=== PATIENT | female | born 1945 | race Two or more races ===

== ENCOUNTER → 2023-06-05 | Emergency (ER) | payer OTHER ==
[~2023-06-05] VITALS: Ht 162.6 cm; Wt 68.0 kg
[~2023-06-05] MED LIST: COZAAR25 MG; GLUMETZA500 MG PO; LYRICA20 MG/1 ML PO; NEURONTIN300 MG
== END | disposition home or self-care (01) ==
LOC: ER 15:46
DX: M25.59 Pain in other specified joint (principal)
CPT/HCPCS: 93005; 96372; 99284; J1885

== ENCOUNTER 2023-06-22 18:49 | Emergency (ER) | payer OTHER ==
[~2023-06-22] VITALS: Ht 162.6 cm; Wt 68.0 kg
[2023-06-22] MEDS ORDERED: ZETIA10 MG (19:13)
[2023-06-22] MEDS ORDERED: ACETAMINOPHEN 500 MG GEL..CAP PO ONE (20:45)
[2023-06-22] MEDS ORDERED: KETOROLAC TROMETHAMINE 30 MG VIAL IM ONE (20:45)
== END 2023-06-22 23:00 | disposition home or self-care (01) ==
LOC: ER 18:49
DX: M54.50 Low back pain, unspecified (principal); Z86.73 Personal history of transient ischemic attack (TIA), and cerebral infarction without residual deficits; E05.80 Other thyrotoxicosis without thyrotoxic crisis or storm; E78.00 Pure hypercholesterolemia, unspecified; E11.9 Type 2 diabetes mellitus without complications; Z79.84 Long term (current) use of oral hypoglycemic drugs
CPT/HCPCS: 72100; 96372; 99283; J1885

== ENCOUNTER 2024-02-16 12:44 | Emergency (ER) | payer OTHER ==
[~2024-02-16] VITALS: Ht 162.6 cm; Wt 71.7 kg
[~2024-02-16 12:44] MED LIST changes: +ZETIA10 MG
[2024-02-16] MEDS ORDERED: SERTRALINE20 MG/1 ML (13:20)
[2024-02-16] MEDS ORDERED: MELOXICAM7.5 MG (13:20)
[2024-02-16] MEDS ORDERED: HYDRALAZINE HCL25 MG PO (13:20)
[2024-02-16] MEDS ORDERED: ATORVASTATIN CA10 MG PO (13:21)
[2024-02-16] MEDS ORDERED: PRAMIPEXOLE E2.25 MG (13:21)
[2024-02-16] MEDS ORDERED: TRADJENTA5 MG PO (13:21)
[2024-02-16] MEDS ORDERED: ACETAMINOPHEN 500 MG GEL..CAP PO ONE (16:30)
[2024-02-16 17:42] LABS: URINE APPEARANCE Cloudy; URINE BILIRRUBIN Negative (NEGATIVE); URINE BLOOD Negative; URINE COLOR Dark Yellow; URINE GLUCOSE Negative (NEGATIVE); URINE KETONE Trace (NEGATIVE); URINE LEUKOCYTE Small; URINE NITRATE Negative; URINE PROTEIN 30 (NEGATIVE)
[2024-02-16 17:42] LABS: HEMATOCRIT 42.3 % (36.0-45.00); HEMOGLOBIN 14.7 g/dL (12.0-15.00); MEAN CELL VOLUME 87.8 fL (80.00-100.00); MEAN CORPUSCULAR HEMOGLOBIN 30.5 pg (27.00-32.0); MEAN CORPUSCULAR HGB CONC 34.7 g/dl (32.0-36.0); PLATELET COUNT 183 K/uL (150-450); RED BLOOD COUNT 4.82 M/uL (4.00-6.00); RED CELL DISTRIBUTION WIDTH 13.9 % (11.5-14.5)
[2024-02-16 17:45] LABS: URINE BACTERIA 7611.5 uL (0.0-1933); URINE CAST 1.52 uL (0.0-1.40); URINE EPITHELIAL CELLS 169.1 uL (0.0-38.8); URINE WBC 329.9 uL (0.0-23.2)
[2024-02-16 18:04] LABS: BILIRUBIN TOTAL 0.99 mg/dL (0.3-1.2); CALCIUM 9.6 mg/dL (8.5-10.1); CREATININE SERUM 0.97 mg/dL (0.55-1.02); GFR 55.68; GLOBULINA 3.4 G/DL (2.4-3.5); POTASSIUM 4.57 mEq/L (3.5-5.1); TOTAL PROTEIN 7.4 gm/dL (6.4-8.2)
[2024-02-16] MEDS ORDERED: MACRODANTIN100 M1 PO (18:54)
[2024-02-16] MEDS ORDERED: CEFTRIAXONE SODIUM 1,000 MG VIAL IM ONE (19:00)
== END 2024-02-16 19:46 ==
LOC: ER 12:46
PROVIDERS: Nurse Practitioner Family
DX: R53.81 Other malaise (principal); N39.0 Urinary tract infection, site not specified; I10 Essential (primary) hypertension; E11.9 Type 2 diabetes mellitus without complications; Z20.822 Contact with and (suspected) exposure to COVID-19
CPT/HCPCS: 36415; 96372; 99282; J0696